=== PATIENT | female | born 1990 | race Caucasian/White ===

== ENCOUNTER 2018-04-28 13:38 | Inpatient (IN) | payer MEDICAID ==
[~2018-04-28] VITALS: Ht 160 cm; Wt 100.2 kg
[2018-04-28] MEDS ORDERED: DEXT 5%/LR + PITOCIN 20UNITS/L 1,000 ML IV SCH ×2 (14:34→22:39)
[2018-04-28] MEDS ORDERED: LACTATED RINGERS 1,000 ML IV SCH (14:34)
[2018-04-28] MEDS ORDERED: METHYLERGONOVINE MALEATE 0.2 MG/ML IM PRN (14:45)
[2018-04-28] MEDS ORDERED: CARBOPROST TROMETHAMINE 250 MCG/ML AMPUL IM PRN (14:45)
[2018-04-28] MEDS ORDERED: BUTORPHANOL TARTRATE 2 MG/ML VIAL IV PRN (14:45)
[2018-04-28] MEDS ORDERED: LIDOCAINE HCL 1% 20ML VIAL (Pyxis) INJ INFIL SCH (14:45)
[2018-04-28] MEDS ORDERED: NALOXONE HCL 0.4 MG/ML 1ML VIAL IM PRN (14:45)
[2018-04-28 16:09] LABS: BASOPHILS % 0.3 % (0.0-2.0); EOSINOPHILS % 0.5 % (0.0-5.0); HEMATOCRIT. 36.1 % (36.0-48.0); HEMOGLOBIN. 12.1 g/dL (12.0-16.0); LYMPHOCYTES % 17.7 % (20.0-50.0); MEAN CORPUSCULAR HEMOGLOBIN 29.9 pg (28.0-32.0); MEAN CORPUSCULAR VOLUME 89.2 fL (81.0-99.0); MEAN PLATELET VOLUME 10.4 fl (7.4-10.4); NEUTROPHILS % 75.5 % (40.0-76.0); PLATELET 174 x1000/uL (130-400); RED BLOOD CELL COUNT 4.05 mill/uL (4.2-5.4); RED CELL DISTRIBUTION WIDTH 15.4 % (11.6-14.6)
[2018-04-28 16:20] LABS: INR 0.9; PARTIAL THROMBOPLASTIN TIME 28.1 sec (23.4-31.0); PROTHROMBIN TIME 9.2 sec (9.1-11.1)
[2018-04-28 17:36] LABS: HEPATITIS B SURFACE ANTIGEN NEGATIVE
[2018-04-28 18:06] LABS: CLARITY URINE CLEAR (CLEAR); COLOR URINE YELLOW (YELLOW); KETONES URINE NEGATIVE (NEGATIVE); LEUKOCYTE ESTERASE URINE NEGATIVE (NEGATIVE); NITRITE URINE NEGATIVE (NEGATIVE); OCCULT BLOOD URINE NEGATIVE (NEGATIVE); PH URINE 6.5 (4.5-8.0); PROTEIN URINE NEGATIVE (NEGATIVE); SPECIFIC GRAVITY URINE 1.004 (1.005-1.030); UROBILINOGEN URINE 0.2 E.U./dL (0.2-1.0)
[2018-04-28 18:35] LABS: *AMPHETAMINES SCREEN URINE NEGATIVE (NEGATIVE); *BARBITURATES SCREEN URINE NEGATIVE (NEGATIVE); *BENZODIAZEPINES SCREEN URINE NEGATIVE (NEGATIVE); *COCAINE SCREEN URINE NEGATIVE (NEGATIVE)
[2018-04-28 18:36] LABS: CANNABINOID URINE SCREEN NEGATIVE (NEGATIVE); METHADONE URINE SCREEN NEGATIVE (NEGATIVE); OPIATES URINE SCREEN NEGATIVE (NEGATIVE); PHENCYCLIDINE URINE SCREEN NEGATIVE (NEGATIVE)
[2018-04-28] MEDS ORDERED: BENZOCAINE/LANOLIN/ALOE VERA SPRAY TOP PRN (22:45)
[2018-04-28] MEDS ORDERED: BISACODYL 10MG SUPP PR PRN (22:45)
[2018-04-28] MEDS ORDERED: LANOLIN OINT 0.25 GM TUBE TOP PRN (22:45)
[2018-04-28] MEDS ORDERED: IBUPROFEN 400MG TABLET PO PRN (22:45)
[2018-04-28] MEDS ORDERED: HEMORRHOIDAL SUPP PR PRN (22:45)
[2018-04-28] MEDS ORDERED: IBUPROFEN 800MG TABLET PO PRN (22:45)
[2018-04-28] MEDS ORDERED: GLYCERIN/WITCH HAZEL LEAF MEDICATED PAD TOP PRN (22:45)
[2018-04-28] MEDS ORDERED: ACETAMINOPHEN WITH CODEINE 300/30MG TABLET PO PRN (22:45)
[2018-04-29 00:15] VITALS: BP 123/64
[2018-04-29 00:45] VITALS: BP 117/57
[2018-04-29 01:15] VITALS: BP 116/68
[2018-04-29 08:17] LABS: HEMATOCRIT. 36.5 % (36.0-48.0); HEMOGLOBIN. 12.3 g/dL (12.0-16.0); MEAN CORPUSCULAR HEMOGLOBIN 29.7 pg (28.0-32.0); MEAN CORPUSCULAR VOLUME 88.4 fL (81.0-99.0); PLATELET 164 x1000/uL (130-400); RED BLOOD CELL COUNT 4.13 mill/uL (4.2-5.4)
[2018-04-29] MEDS ORDERED: CITRIC ACID/SODIUM CITRATE SOLN 30ML UDC PO SCH (08:45)
[2018-04-29 09:03] LABS: PLATELET ESTIMATE NORMAL
[2018-04-29] MEDS ORDERED: BUPIVACAINE HCL/DEXTROSE/PF 0.75% 2ML AMP INJ ONE (09:41)
[2018-04-29] MEDS ORDERED: BUPIVACAINE HCL/PF 0.25% (2.5MG/ML) 10ML ONE (09:42)
[2018-04-29] MEDS ORDERED: DIPHENHYDRAMINE 25MG CAPSULE PO PRN (09:45)
[2018-04-29] MEDS ORDERED: IBUPROFEN 800MG TABLET PO PRN (09:45)
[2018-04-29] MEDS ORDERED: ACETAMINOPHEN WITH CODEINE 300/30MG TABLET PO PRN (09:45)
[2018-04-29] MEDS ORDERED: BISACODYL 10MG SUPP PR PRN (09:45)
[2018-04-29] MEDS ORDERED: LANOLIN OINT 0.25 GM TUBE TOP PRN (09:45)
[2018-04-29] MEDS ORDERED: IBUPROFEN 400MG TABLET PO PRN (09:45)
[2018-04-29] MEDS ORDERED: KETOROLAC 30MG/ML VIAL IM SCH (10:00)
[2018-04-29] MEDS ORDERED: MORPHINE SULFATE 10 MG/ML CPJ IV PRN (10:15)
[2018-04-29] MEDS ORDERED: DIPHENHYDRAMINE 50MG/ML VIAL IM PRN (10:15)
[2018-04-29] MEDS ORDERED: ONDANSETRON HCL 4MG/2ML INJ IV PRN (10:15)
[2018-04-29 12:00] VITALS: BP 114/74
[2018-04-29] MEDS: SIMETHICONE 80MG TABLET CHEW PO SCH ×3 (12:56→21:00)
[2018-04-29 17:00] VITALS: BP 105/50
[2018-04-29 19:40] VITALS: BP 115/56
[2018-04-29] MEDS ORDERED: DOCUSATE SODIUM 100MG CAPSULE PO SCH (21:00)
[2018-04-30 04:20] VITALS: BP 118/69
[2018-04-30] MEDS ORDERED: FERROUS SULFATE 325MG TABLET PO SCH (07:30)
[2018-04-30] MEDS: SIMETHICONE 80MG TABLET CHEW PO SCH (08:00)
[2018-04-30 08:39] VITALS: BP 116/68
[2018-04-30] MEDS ORDERED: PRENATAL VIT/FE FUMARATE/FA TABLET PO SCH (09:00)
== END 2018-04-30 11:00 | disposition home or self-care (01) | DRG 541 ==
LOC: INTOOBSV 13:38 → 8 EST LDRP 13:38 → OBSVTOIN 13:38 → 8EST 23:52
PROVIDERS: ADMIT Specialist; ATTEND Specialist
PROC: 0UB70ZZ Excision of Bilateral Fallopian Tubes, Open Approach (ICD-10-PCS; 2018-04-29)
PROC: 0HQ9XZZ Repair Perineum Skin, External Approach (ICD-10-PCS; 2018-04-29)
PROC: 10E0XZZ Delivery of Products of Conception, External Approach (ICD-10-PCS; principal; 2018-04-29 09:50)
DX: O99.214 Obesity complicating childbirth (principal); Z68.39 Body mass index [BMI] 39.0-39.9, adult; O70.9 Perineal laceration during delivery, unspecified; Z30.2 Encounter for sterilization; Z37.0 Single live birth; Z3A.39 39 weeks gestation of pregnancy
CPT/HCPCS: 36415; 80305; 85007; 85027; 86592; 86703; 86762; 86850; 86900; 87340; 88302; 99281; G0378; J0595; J2590; J3490; J7120